=== PATIENT | male | born 1975 | race Caucasian/White ===

== ENCOUNTER 2020-02-03 00:36 | Inpatient (IN) | payer MEDICAID, OTHER ==
[~2020-02-03] VITALS: Ht 180.3 cm; Wt 99.1 kg
[2020-02-03 02:11] LABS: Basophils # (auto) 0.1 10 ^3/uL (0-0.2); Basophils % (auto) 0.7 % (0.0-2.0); Eosinophils # (auto) 0.1 10 ^3/uL (0-0.8); Eosinophils % (auto) 0.6 % (0.0-7.0); Hematocrit 49.4 % (41.0-53.0); Hemoglobin 16.2 g/dL (13.5-17.5); Lymphocytes # (auto) 3.4 10 ^3/uL (0.4-5.4); Lymphocytes % (auto) 33.7 % (10.0-50.0); Mean Corpuscular Hemoglobin 30.5 pg (28.0-32.0); Mean Corpuscular Hgb Conc. 32.8 g/dL (32.0-36.0); Mean Corpuscular Volume 93.1 fL (80.0-100.0); Monocytes # (auto) 0.5 10 ^3/uL (0-1.3); Monocytes % (auto) 5.4 % (0.0-12.0); Neutrophils % (auto) 59.6 % (37.0-80.0); Nucleated Red Blood Cells % 0.1 %; Platelet Count (auto) 341 10^3/uL (140-450); Red Blood Cells 5.31 10^6/uL (4.5-5.90); White Blood Cell 10.1 10^3/uL (4.4-10.8)
[2020-02-03 02:28] LABS: Albumin 2.7 g/dL (3.4-5.0); INR 0.96 (0.9-1.15); Partial Thromboplastin Time 26.6 sec (23.64-32.05); Potassium 5.1 mmol/L (3.5-5.1)
[2020-02-03] MEDS ORDERED: InsuLIN R (HUMAN) 100 UNITS in SODIUM CHL 0.9% 99 ML IV SCH (02:29)
[2020-02-03] MEDS ORDERED: DEXTROSE (50%) 50ML SYRG IV PRN ×2 (02:30→05:00)
[2020-02-03 02:32] LABS: BUN/Creatinine Ratio 14.8; Bilirubin, Total 0.2 mg/dL (0.2-1.0); Total Protein 6.9 g/dL (6.4-8.2)
[2020-02-03] MEDS ORDERED: InsuLIN REG 1unit/0.01ml Soln (100units/ml) ONE (02:53)
[2020-02-03] MEDS: ACCU-CHEK COMFORT CURVE STRIP VI SCH ×7 (03:35→23:55)
[2020-02-03] MEDS ORDERED: MORPHINE SULF INJ 2 MG/ML SYRINGE 1ML IV PRN ×2 (05:00→08:30)
[2020-02-03] MEDS ORDERED: NITROGLYCERIN 0.4 MG SL TAB SL PRN ×2 (05:00)
[2020-02-03] MEDS ORDERED: ONDANSETRON HCL 4 MG/2 ML VIAL IV PRN (05:00)
[2020-02-03] MEDS ORDERED: MORPHINE SULFATE 4 MG/ML SYR/VIAL IV PRN (05:00)
[2020-02-03] MEDS ORDERED: ACETAMINOPHEN 325 MG TAB PO PRN (05:00)
[2020-02-03] MEDS ORDERED: SODIUM CHLORIDE 0.9% 1,000 ML IV SCH (06:29)
[2020-02-03] MEDS: SODIUM CHLORIDE 0.9% 1,000 ML IV SCH ×2 (08:37→17:38)
[2020-02-03] MEDS: InsuLIN REG 1unit/0.01ml Soln (100units/ml) SC SCH ×5 (08:38→23:55)
[2020-02-03 09:00] VITALS: BP 128/90
[2020-02-03 09:09] LABS: BUN/Creatinine Ratio 20.2; Calcium 8.1 mg/dL (8.5-10.1); Potassium 3.9 mmol/L (3.5-5.1)
[2020-02-03] MEDS: DOCUSATE SOD 100 MG CAP PO SCH (10:00)
[2020-02-03] MEDS: ASPirin 81 mg TAB PO SCH (10:32)
[2020-02-03] MEDS: CARVEDILOL 3.125 MG TAB PO SCH ×2 (10:33→22:09)
[2020-02-03] MEDS: LISINOPRIL 20 MG TAB PO SCH (10:33)
[2020-02-03] MEDS: CLOPIDOGREL BISULFATE 75 MG TAB PO SCH (10:33)
[2020-02-03] MEDS ORDERED: HEPARIN DRIP/D5W 100UNITS/ML 250 ML IV SCH (10:43)
[2020-02-03] MEDS ORDERED: HEPARIN SODIUM (PORCINE) 5000 UNITS/ML 1ML VIAL IV ONE (10:45)
[2020-02-03 10:59] LABS: Alcohol, Urine < 3.0 mg/dL (0-5); Amphetamine Screen, Urine POSITIVE (NEGATIVE); Barbiturate Scree,Urine NEGATIVE (NEGATIVE); Benzodiazephine Screen, Urine NEGATIVE (NEGATIVE); Cannabinoid Screen, Urine NEGATIVE (NEGATIVE); Cocaine Screen, Urine NEGATIVE (NEGATIVE); Opiate Scree,Urine NEGATIVE (NEGATIVE); Phencyclidine Screen, Urine NEGATIVE (NEGATIVE)
[2020-02-03] MEDS ORDERED: NICOTINE 14 MG/24HR TOPICAL PATCH TD ONE (11:00)
[2020-02-03 11:18] LABS: INR 0.97 (0.9-1.15); Partial Thromboplastin Time 25.1 sec (23.64-32.05)
[2020-02-03 11:28] LABS: Cholesterol 244 mg/dL (< 200); HDL Cholesterol 31 mg/dL (40-59); Triglycerides 651 mg/dL (< 150)
[2020-02-03 13:00] VITALS: BP 138/95
[2020-02-03 14:55] LABS: Calcium 8.3 mg/dL (8.5-10.1)
[2020-02-03 14:59] LABS: BUN/Creatinine Ratio 19.4
[2020-02-03 17:00] VITALS: BP 120/81
[2020-02-03] MEDS: glipiZIDE 5 MG TAB PO SCH (17:38)
[2020-02-03] MEDS: Glucerna Carbsteady SHAKE Vanilla 8oz PO SCH (18:27)
[2020-02-03 20:21] LABS: BUN/Creatinine Ratio 22.9; Calcium 8.1 mg/dL (8.5-10.1); Potassium 3.7 mmol/L (3.5-5.1)
[2020-02-03 20:24] LABS: INR 1.01 (0.9-1.15); Partial Thromboplastin Time 41.7 sec (23.64-32.05)
[2020-02-03 22:00] VITALS: BP 116/84
[2020-02-03] MEDS: ATORVASTATIN 20 MG TAB PO SCH (22:09)
[2020-02-04 01:16] LABS: Anion Gap 5 (5-15); Blood Urea Nitrogen 22 mg/dL (7-18); Calcium 8.3 mg/dL (8.5-10.1); Carbon Dioxide 28 mmol/L (21-32); Chloride 104 mmol/L (98-107); Glucose 153 mg/dL (74-106); Magnesium 2.3 mg/dL (1.6-2.6); Potassium 3.9 mmol/L (3.5-5.1); Sodium 137 mmol/L (136-145)
[2020-02-04 01:22] LABS: BUN/Creatinine Ratio 26.8; Cholesterol 241 mg/dL (< 200); GFR African American 133 mL/min; GFR Non-African American 110 mL/min; HDL Cholesterol 33 mg/dL (40-59); Triglycerides 533 mg/dL (< 150)
[2020-02-04 03:19] LABS: INR 3.89 (0.9-1.15)
[2020-02-04 03:20] LABS: Partial Thromboplastin Time > 139.0 sec (23.64-32.05)
[2020-02-04] MEDS: ACCU-CHEK COMFORT CURVE STRIP VI SCH ×5 (03:55→20:13)
[2020-02-04] MEDS: InsuLIN REG 1unit/0.01ml Soln (100units/ml) SC SCH ×5 (03:56→20:13)
[2020-02-04] MEDS: SODIUM CHLORIDE 0.9% 1,000 ML IV SCH ×2 (05:34→20:58)
[2020-02-04] MEDS: glipiZIDE 5 MG TAB PO SCH ×2 (05:41→17:03)
[2020-02-04 06:00] VITALS: BP 119/87
[2020-02-04 06:49] LABS: Basophils # (auto) 0.1 10 ^3/uL (0-0.2); Basophils % (auto) 0.9 % (0.0-2.0); Eosinophils # (auto) 0.1 10 ^3/uL (0-0.8); Eosinophils % (auto) 1.1 % (0.0-7.0); Hematocrit 49.7 % (41.0-53.0); Hemoglobin 16.2 g/dL (13.5-17.5); Lymphocytes # (auto) 4.1 10 ^3/uL (0.4-5.4); Lymphocytes % (auto) 37.9 % (10.0-50.0); Mean Corpuscular Hgb Conc. 32.5 g/dL (32.0-36.0); Mean Corpuscular Volume 92.2 fL (80.0-100.0); Monocytes # (auto) 0.5 10 ^3/uL (0-1.3); Monocytes % (auto) 4.2 % (0.0-12.0); Neutrophils % (auto) 55.9 % (37.0-80.0); Platelet Count (auto) 307 10^3/uL (140-450); Red Blood Cells 5.39 10^6/uL (4.5-5.90); Red Cell Distribution Width 13.2 % (11.8-14.3); White Blood Cell 10.8 10^3/uL (4.4-10.8)
[2020-02-04 08:03] LABS: INR 0.98 (0.9-1.15); Partial Thromboplastin Time 39.3 sec (23.64-32.05)
[2020-02-04] MEDS: Glucerna Carbsteady SHAKE Vanilla 8oz PO SCH ×3 (08:26→18:04)
[2020-02-04 08:41] VITALS: BP 121/78
[2020-02-04] MEDS ORDERED: HEPARIN DRIP/D5W 100UNITS/ML 250 ML IV SCH ×2 (09:00→16:15)
[2020-02-04] MEDS: DOCUSATE SOD 100 MG CAP PO SCH (09:45)
[2020-02-04] MEDS: ASPirin 81 mg TAB PO SCH (09:47)
[2020-02-04] MEDS: CARVEDILOL 3.125 MG TAB PO SCH ×2 (09:48→22:33)
[2020-02-04] MEDS: CLOPIDOGREL BISULFATE 75 MG TAB PO SCH (09:48)
[2020-02-04] MEDS: LISINOPRIL 20 MG TAB PO SCH (09:48)
[2020-02-04] MEDS: NICOTINE 14 MG/24HR TOPICAL PATCH TD SCH (09:49)
[2020-02-04 13:00] VITALS: BP 121/75
[2020-02-04 15:14] LABS: INR 0.98 (0.9-1.15); Partial Thromboplastin Time 42.4 sec (23.64-32.05)
[2020-02-04 17:00] VITALS: BP 104/60
[2020-02-04 22:03] VITALS: BP 116/71
[2020-02-04] MEDS: ATORVASTATIN 20 MG TAB PO SCH (22:33)
[2020-02-04 22:47] LABS: INR 0.98 (0.9-1.15); Partial Thromboplastin Time 40.3 sec (23.64-32.05)
[2020-02-05] MEDS: ACCU-CHEK COMFORT CURVE STRIP VI SCH ×6 (00:17→20:36)
[2020-02-05] MEDS: InsuLIN REG 1unit/0.01ml Soln (100units/ml) SC SCH ×6 (04:00→20:39)
[2020-02-05 05:00] VITALS: BP 107/75
[2020-02-05] MEDS: glipiZIDE 5 MG TAB PO SCH ×2 (05:00→17:38)
[2020-02-05 05:59] LABS: Basophils # (auto) 0 10 ^3/uL (0-0.2); Basophils % (auto) 0.3 % (0.0-2.0); Eosinophils # (auto) 0.1 10 ^3/uL (0-0.8); Eosinophils % (auto) 1.2 % (0.0-7.0); Hematocrit 48.2 % (41.0-53.0); Hemoglobin 16.2 g/dL (13.5-17.5); Lymphocytes # (auto) 3.6 10 ^3/uL (0.4-5.4); Lymphocytes % (auto) 37.6 % (10.0-50.0); Mean Corpuscular Hemoglobin 31.1 pg (28.0-32.0); Mean Corpuscular Hgb Conc. 33.7 g/dL (32.0-36.0); Mean Corpuscular Volume 92.4 fL (80.0-100.0); Monocytes # (auto) 0.4 10 ^3/uL (0-1.3); Monocytes % (auto) 4.5 % (0.0-12.0); Neutrophils # (auto) 5.4 10 ^3/uL (1.6-8.6); Neutrophils % (auto) 56.4 % (37.0-80.0); Nucleated Red Blood Cells % 0.1 %; Platelet Count (auto) 286 10^3/uL (140-450); Red Blood Cells 5.21 10^6/uL (4.5-5.90); Red Cell Distribution Width 13.2 % (11.8-14.3); White Blood Cell 9.5 10^3/uL (4.4-10.8)
[2020-02-05 06:10] LABS: INR 1.01 (0.9-1.15); Partial Thromboplastin Time 53.2 sec (23.64-32.05)
[2020-02-05 06:29] LABS: Potassium 4.4 mmol/L (3.5-5.1)
[2020-02-05 06:35] LABS: BUN/Creatinine Ratio 30.9; Calcium 8.5 mg/dL (8.5-10.1)
[2020-02-05] MEDS: Glucerna Carbsteady SHAKE Vanilla 8oz PO SCH ×3 (08:00→17:38)
[2020-02-05] MEDS ORDERED: LIDOCAINE 2%HCL (LOCAL ANESTH.) INJ 20ML MDV ONE (08:32)
[2020-02-05] MEDS ORDERED: IODIXANOL 320MG/ML 100ML BTL IV ONE (08:32)
[2020-02-05] MEDS ORDERED: fentaNYL CITRATE 100 MCG/2 ML VL ONE (08:56)
[2020-02-05] MEDS ORDERED: VERAPAMIL 2.5MG/ML INJ 2ML VIAL IV ONE (08:56)
[2020-02-05] MEDS ORDERED: ANGIOMAX 250 MG VIAL IV ONE (08:56)
[2020-02-05] MEDS ORDERED: MIDAZOLAM HCL 1MG/1ML-2 ML VIAL ONE (08:57)
[2020-02-05] MEDS ORDERED: SODIUM CHL 0.9% 0 ML ONE (08:57)
[2020-02-05 09:07] VITALS: BP 106/52
[2020-02-05] MEDS ORDERED: HEPARIN SODIUM (PORCINE) 5000 UNITS/ML 1ML VIAL ONE (09:33)
[2020-02-05] MEDS: CARVEDILOL 3.125 MG TAB PO SCH ×2 (10:00→22:14)
[2020-02-05] MEDS: FENOFIBRATE PO SCH (10:00)
[2020-02-05] MEDS: DOCUSATE SOD 100 MG CAP PO SCH (10:00)
[2020-02-05] MEDS: NICOTINE 14 MG/24HR TOPICAL PATCH TD SCH (10:00)
[2020-02-05] MEDS: LISINOPRIL 20 MG TAB PO SCH (10:00)
[2020-02-05] MEDS ORDERED: IOHEXOL 350 MG/ML 100ML IJ ONE ×2 (10:06→10:28)
[2020-02-05] MEDS ORDERED: ATROPINE SULF 1 MG/10ml SYR ONE (10:11)
[2020-02-05] MEDS ORDERED: DOPamine 1600MCG/ML D5W 250 ML IV ONE (10:12)
[2020-02-05] MEDS ORDERED: EPINEPHrine HCL 1 MG/10 ML SYRG ONE (10:16)
[2020-02-05] MEDS: SODIUM CHLORIDE 0.9% 1,000 ML IV SCH (10:18)
[2020-02-05] MEDS ORDERED: PHENYLEPHRINE HCL 10 MG/ML VL ONE (10:20)
[2020-02-05] MEDS: ASPirin 81 mg TAB PO SCH (11:12)
[2020-02-05] MEDS: CLOPIDOGREL BISULFATE 75 MG TAB PO SCH (11:13)
[2020-02-05 13:00] VITALS: BP 103/65
[2020-02-05] MEDS ORDERED: HYDROcodone-ACET 5/325MG TAB PO PRN (15:30)
[2020-02-05 16:39] VITALS: BP 132/89
[2020-02-05 22:00] VITALS: BP 143/98
[2020-02-05] MEDS: ATORVASTATIN 20 MG TAB PO SCH (22:14)
[2020-02-06] MEDS: ACCU-CHEK COMFORT CURVE STRIP VI SCH ×4 (00:01→12:23)
[2020-02-06] MEDS: SODIUM CHLORIDE 0.9% 1,000 ML IV SCH ×2 (00:01→12:41)
[2020-02-06] MEDS: InsuLIN REG 1unit/0.01ml Soln (100units/ml) SC SCH ×4 (00:06→12:00)
[2020-02-06 05:00] VITALS: BP 118/76
[2020-02-06 06:40] LABS: Basophils # (auto) 0 10 ^3/uL (0-0.2); Basophils % (auto) 0.5 % (0.0-2.0); Eosinophils # (auto) 0.1 10 ^3/uL (0-0.8); Eosinophils % (auto) 0.5 % (0.0-7.0); Hematocrit 47.1 % (41.0-53.0); Hemoglobin 15.8 g/dL (13.5-17.5); Lymphocytes # (auto) 3.1 10 ^3/uL (0.4-5.4); Lymphocytes % (auto) 30.7 % (10.0-50.0); Mean Corpuscular Hemoglobin 30.8 pg (28.0-32.0); Mean Corpuscular Hgb Conc. 33.6 g/dL (32.0-36.0); Mean Corpuscular Volume 91.7 fL (80.0-100.0); Monocytes # (auto) 0.7 10 ^3/uL (0-1.3); Monocytes % (auto) 6.6 % (0.0-12.0); Neutrophils # (auto) 6.2 10 ^3/uL (1.6-8.6); Neutrophils % (auto) 61.7 % (37.0-80.0); Platelet Count (auto) 296 10^3/uL (140-450); Red Blood Cells 5.14 10^6/uL (4.5-5.90); Red Cell Distribution Width 13.2 % (11.8-14.3); White Blood Cell 10.1 10^3/uL (4.4-10.8)
[2020-02-06] MEDS: glipiZIDE 5 MG TAB PO SCH (06:52)
[2020-02-06 07:17] LABS: BUN/Creatinine Ratio 23.9; Calcium 8.4 mg/dL (8.5-10.1); Potassium 4.1 mmol/L (3.5-5.1)
[2020-02-06] MEDS: Glucerna Carbsteady SHAKE Vanilla 8oz PO SCH ×2 (08:27→12:00)
[2020-02-06 09:00] VITALS: BP 129/88
[2020-02-06] MEDS: FENOFIBRATE PO SCH (10:00)
[2020-02-06] MEDS: DOCUSATE SOD 100 MG CAP PO SCH (10:35)
[2020-02-06] MEDS: LISINOPRIL 20 MG TAB PO SCH (10:35)
[2020-02-06] MEDS: ASPirin 81 mg TAB PO SCH (10:35)
[2020-02-06] MEDS: CLOPIDOGREL BISULFATE 75 MG TAB PO SCH (10:36)
[2020-02-06] MEDS: CARVEDILOL 3.125 MG TAB PO SCH (10:37)
[2020-02-06] MEDS: NICOTINE 14 MG/24HR TOPICAL PATCH TD SCH (10:39)
[2020-02-06 13:00] VITALS: BP 125/78
[2020-02-06 14:28] VITALS: BP 125/78
== END 2020-02-06 14:50 | disposition home or self-care (01) | DRG 174 ==
LOC: EDBD 00:36 → ER 00:41 → TELE 00:42 → TELE-WESTW 07:53
PROVIDERS: ADMIT Hospitalist; ATTEND Internal Medicine
PROC: 027034Z Dilation of Coronary Artery, One Artery with Drug-eluting Intraluminal Device, Percutaneous Approach (ICD-10-PCS; principal; 2020-02-05)
PROC: 4A023N7 Measurement of Cardiac Sampling and Pressure, Left Heart, Percutaneous Approach (ICD-10-PCS; 2020-02-05)
PROC: B2111ZZ Fluoroscopy of Multiple Coronary Arteries using Low Osmolar Contrast (ICD-10-PCS; 2020-02-05)
PROC: B2151ZZ Fluoroscopy of Left Heart using Low Osmolar Contrast (ICD-10-PCS; 2020-02-05)
DX: I21.4 Non-ST elevation (NSTEMI) myocardial infarction (principal); D89.9 Disorder involving the immune mechanism, unspecified; E11.21 Type 2 diabetes mellitus with diabetic nephropathy; E11.65 Type 2 diabetes mellitus with hyperglycemia; E87.1 Hypo-osmolality and hyponatremia; E66.3 Overweight; E78.5 Hyperlipidemia, unspecified; F15.90 Other stimulant use, unspecified, uncomplicated; F17.210 Nicotine dependence, cigarettes, uncomplicated; I10 Essential (primary) hypertension; E78.00 Pure hypercholesterolemia, unspecified; R00.0 Tachycardia, unspecified; Z82.49 Family history of ischemic heart disease and other diseases of the circulatory system; Z83.3 Family history of diabetes mellitus; Z83.42 Family history of familial hypercholesterolemia; Z79.02 Long term (current) use of antithrombotics/antiplatelets; Z79.82 Long term (current) use of aspirin; Z79.84 Long term (current) use of oral hypoglycemic drugs; Z79.899 Other long term (current) drug therapy; I25.10 Atherosclerotic heart disease of native coronary artery without angina pectoris; Z68.30 Body mass index [BMI] 30.0-30.9, adult
CPT/HCPCS: 36415; 36600; 71045; 80048; 80053; 80061; 80307; 82010; 82805; 82962; 83036; 83735; 83880; 83930; 84100; 84443; 84484; 85025; 85610; 85730; 93005; 93306; 96361; 99152; 99153; C1874; C1887; G0378; J1815; J2250; Q9967

== ENCOUNTER 2021-04-21 15:46 | Inpatient (IN) | payer MEDICAID ==
[~2021-04-21] VITALS: Ht 180.3 cm; Wt 99.1 kg
[2021-04-21] MEDS ORDERED: HEPARIN 1,000 UNITS/ml 1ML VIAL ONE (15:57)
[2021-04-21] MEDS ORDERED: HEPARIN SODIUM (PORCINE) 5000 UNITS/ML 1ML VIAL IV ONE ×2 (16:00)
[2021-04-21] MEDS ORDERED: fentaNYL CITRATE 100 MCG/2 ML VL ONE (16:01)
[2021-04-21] MEDS ORDERED: SODIUM CHL 0.9% 50 ML ONE (16:01)
[2021-04-21] MEDS ORDERED: VERAPAMIL 2.5MG/ML INJ 2ML VIAL IV ONE (16:01)
[2021-04-21] MEDS ORDERED: HEPARIN SODIUM (PORCINE) 5000 UNITS/ML 1ML VIAL ONE (16:01)
[2021-04-21] MEDS ORDERED: ANGIOMAX 250 MG VIAL IV ONE (16:01)
[2021-04-21] MEDS ORDERED: MIDAZOLAM HCL 1MG/1ML-2 ML VIAL ONE (16:01)
[2021-04-21] MEDS ORDERED: IOHEXOL 350 MG/ML 100ML IJ ONE (16:02)
[2021-04-21] MEDS ORDERED: LIDOCAINE 2%HCL (LOCAL ANESTH.) INJ 20ML MDV ONE (16:02)
[2021-04-21 16:14] LABS: Basophils # (auto) 0.1 10 ^3/uL (0-0.2); Basophils % (auto) 0.5 % (0.0-2.0); Eosinophils # (auto) 0 10 ^3/uL (0-0.8); Eosinophils % (auto) 0.4 % (0.0-7.0); Hematocrit 43.3 % (41.0-53.0); Hemoglobin 14.6 g/dL (13.5-17.5); Lymphocytes # (auto) 3.9 10 ^3/uL (0.4-5.4); Mean Corpuscular Hgb Conc. 33.7 g/dL (32.0-36.0); Mean Corpuscular Volume 91.9 fL (80.0-100.0); Monocytes # (auto) 0.8 10 ^3/uL (0-1.3); Neutrophils # (auto) 6.1 10 ^3/uL (1.6-8.6); Neutrophils % (auto) 56.1 % (37.0-80.0); Nucleated Red Blood Cells % 0.1 %; Red Blood Cells 4.72 10^6/uL (4.5-5.90); Red Cell Distribution Width 13.2 % (11.8-14.3); White Blood Cell 10.9 10^3/uL (4.4-10.8)
[2021-04-21] MEDS ORDERED: IODIXANOL 320MG/ML 100ML BTL IV ONE (16:17)
[2021-04-21] MEDS ORDERED: ATROPINE SULF 1 MG/10ml SYR ONE (16:20)
[2021-04-21] MEDS ORDERED: EPINEPHrine HCL 1 MG/10 ML SYRG ONE (16:21)
[2021-04-21] MEDS ORDERED: EPTIFIBATIDE INJ (2MG/ML) 10ML VIAL IV ONE (16:26)
[2021-04-21] MEDS ORDERED: ASPirin 81 mg TAB ONE (16:29)
[2021-04-21 16:35] LABS: INR 0.9 (0.9-1.15); Partial Thromboplastin Time 24.4 sec (23.0-31.2)
[2021-04-21] MEDS ORDERED: SODIUM CHLORIDE 0.9% 1,000 ML IV ONE (16:40)
[2021-04-21 16:50] LABS: Albumin 2.9 g/dL (3.4-5.0); BUN/Creatinine Ratio 17.7; Calcium 8.6 mg/dL (8.5-10.1); Potassium 4.3 mmol/L (3.5-5.1)
[2021-04-21 16:55] LABS: Bilirubin, Total 0.4 mg/dL (0.2-1.0); Total Protein 6.7 g/dL (6.4-8.2)
[2021-04-21] MEDS ORDERED: NITROGLYCERIN 0.4 MG SL TAB SL PRN (17:00)
[2021-04-21] MEDS ORDERED: MORPHINE SULF INJ 2 MG/ML SYRINGE 1ML IV PRN (17:00)
[2021-04-21] MEDS ORDERED: TICAGRELOR 90 MG TAB PO ONE (17:00)
[2021-04-21 22:00] VITALS: BP 129/92
[2021-04-21] MEDS: CARVEDILOL 3.125 MG TAB PO SCH (22:13)
[2021-04-22 05:00] VITALS: BP 138/87
[2021-04-22] MEDS: CARVEDILOL 3.125 MG TAB PO SCH ×2 (08:42→21:11)
[2021-04-22] MEDS: ASPirin 81 mg TAB PO SCH (08:42)
[2021-04-22] MEDS: ATORVASTATIN 20 MG TAB PO SCH (08:49)
[2021-04-22 09:00] VITALS: BP 129/82
[2021-04-22] MEDS ORDERED: TICAGRELOR 90 MG TAB PO SCH (10:00)
[2021-04-22] MEDS ORDERED: DEXTROSE (50%) 50ML SYRG IV PRN (10:00)
[2021-04-22 11:27] LABS: Cholesterol 225 mg/dL (< 200)
[2021-04-22 11:29] LABS: HDL Cholesterol 35 mg/dL (40-59); Triglycerides 608 mg/dL (< 150)
[2021-04-22] MEDS: ACCU-CHEK COMFORT CURVE STRIP VI SCH ×3 (11:44→21:07)
[2021-04-22] MEDS: InsuLIN REG 1unit/0.01ml Soln (100units/ml) SC SCH ×2 (11:48→17:21)
[2021-04-22 13:00] VITALS: BP 125/92
[2021-04-22 16:37] VITALS: BP 109/86
[2021-04-22] MEDS ORDERED: CLOPIDOGREL 300 MG TAB PO ONE (18:30)
[2021-04-22 22:00] VITALS: BP 120/80
[2021-04-22] MEDS ORDERED: InsuLIN REG 1unit/0.01ml Soln (100units/ml) SC SCH (22:00)
[2021-04-23 05:11] VITALS: BP 107/76
[2021-04-23] MEDS: ACCU-CHEK COMFORT CURVE STRIP VI SCH ×3 (06:12→17:00)
[2021-04-23] MEDS: InsuLIN REG 1unit/0.01ml Soln (100units/ml) SC SCH ×3 (06:12→17:02)
[2021-04-23 06:41] LABS: Albumin 2.8 g/dL (3.4-5.0); Calcium 8.5 mg/dL (8.5-10.1)
[2021-04-23 06:45] LABS: Bilirubin, Direct 0.2 mg/dL (0-0.2); Bilirubin, Total 0.5 mg/dL (0.2-1.0); Total Protein 7.5 g/dL (6.4-8.2)
[2021-04-23 09:00] VITALS: BP 103/76
[2021-04-23] MEDS: ASPirin 81 mg TAB PO SCH (09:25)
[2021-04-23] MEDS: CARVEDILOL 3.125 MG TAB PO SCH (09:26)
[2021-04-23] MEDS: ATORVASTATIN 20 MG TAB PO SCH (09:26)
[2021-04-23] MEDS ORDERED: CLOPIDOGREL BISULFATE 75 MG TAB PO SCH (10:00)
[2021-04-23] MEDS ORDERED: CLOP75TA28 PO (11:38)
[2021-04-23] MEDS ORDERED: ASPI-543 PO (11:38)
[2021-04-23] MEDS ORDERED: CAR3125T PO (11:39)
[2021-04-23] MEDS ORDERED: ATOR80TA PO (11:39)
[2021-04-23] MEDS ORDERED: INSLANTI SC (11:40)
[2021-04-23] MEDS ORDERED: INSREG3 SUBCUT (11:42)
[2021-04-23 13:00] VITALS: BP 109/76
== END 2021-04-23 18:13 | disposition home or self-care (01) | DRG 174 ==
LOC: ER 15:46 → EDBD 15:46 → ER 16:04 → TELE-CENTR 16:48
PROVIDERS: ADMIT Nurse Practitioner Acute Care; ATTEND Internal Medicine
PROC: B211YZZ Fluoroscopy of Multiple Coronary Arteries using Other Contrast (ICD-10-PCS; principal; 2021-04-21)
PROC: 027034Z Dilation of Coronary Artery, One Artery with Drug-eluting Intraluminal Device, Percutaneous Approach (ICD-10-PCS; 2021-04-21)
PROC: 4A023N7 Measurement of Cardiac Sampling and Pressure, Left Heart, Percutaneous Approach (ICD-10-PCS; 2021-04-21)
DX: I21.3 ST elevation (STEMI) myocardial infarction of unspecified site (principal); I11.0 Hypertensive heart disease with heart failure; E11.65 Type 2 diabetes mellitus with hyperglycemia; I50.9 Heart failure, unspecified; E87.1 Hypo-osmolality and hyponatremia; I25.10 Atherosclerotic heart disease of native coronary artery without angina pectoris; Z20.822 Contact with and (suspected) exposure to COVID-19; E78.5 Hyperlipidemia, unspecified; Z79.02 Long term (current) use of antithrombotics/antiplatelets; Z72.0 Tobacco use; Z79.4 Long term (current) use of insulin; Z79.82 Long term (current) use of aspirin; Z79.899 Other long term (current) drug therapy; Z82.49 Family history of ischemic heart disease and other diseases of the circulatory system; Z83.3 Family history of diabetes mellitus; Z91.19 Patient's noncompliance with other medical treatment and regimen; Z95.5 Presence of coronary angioplasty implant and graft
CPT/HCPCS: 36415; 71045; 80048; 80053; 80061; 80076; 82962; 83036; 84484; 85025; 85610; 85730; 87426; 92928; 93458; 96361; 96374; 99152; C1874; G0378; J1815; J2250; Q9967

== ENCOUNTER 2023-02-28 07:19 | Emergency (ER) | payer MEDICAID ==
[~2023-02-28] VITALS: Ht 182.9 cm; Wt 127.0 kg
[~2023-02-28 07:19] MED LIST: ASPI-543 PO; ATOR80TA PO; CAR3125T PO; CLOP75TA28 PO; INSLANTI SC; INSREG3 SUBCUT
[2023-02-28] MEDS ORDERED: LORazepam 2MG/ML-1ML VIAL IV ONE (08:00)
[2023-02-28 08:10] LABS: Basophils # (auto) 0.1 10 ^3/uL (0-0.2); Basophils % (auto) 1.2 % (0.0-2.0); Eosinophils # (auto) 0.1 10 ^3/uL (0-0.8); Eosinophils % (auto) 1.2 % (0.0-7.0); Hematocrit 38.7 % (41.0-53.0); Hemoglobin 12.9 g/dL (13.5-17.5); Lymphocytes # (auto) 2.9 10 ^3/uL (0.4-5.4); Mean Corpuscular Hemoglobin 30.8 pg (28.0-32.0); Mean Corpuscular Hgb Conc. 33.3 g/dL (32.0-36.0); Mean Corpuscular Volume 92.7 fL (80.0-100.0); Monocytes # (auto) 0.7 10 ^3/uL (0-1.3); Monocytes % (auto) 6.9 % (0.0-12.0); Neutrophils # (auto) 6.7 10 ^3/uL (1.6-8.6); Neutrophils % (auto) 63.7 % (37.0-80.0); Red Blood Cells 4.17 10^6/uL (4.5-5.90); Red Cell Distribution Width 13.5 % (11.8-14.3); White Blood Cell 10.6 10^3/uL (4.4-10.8)
[2023-02-28 08:21] LABS: Albumin 3.3 g/dL (3.4-5.0); Anion Gap 6 (5-15); Blood Alcohol < 3.0 mg/dL (0-5); Blood Urea Nitrogen 18 mg/dL (7-18); Calcium 7.9 mg/dL (8.5-10.1); Carbon Dioxide 24 mmol/L (21-32); Chloride 112 mmol/L (98-107); Glucose 208 mg/dL (74-106); Magnesium 1.8 mg/dL (1.6-2.6); Potassium 3.5 mmol/L (3.5-5.1); Sodium 142 mmol/L (136-145)
[2023-02-28 08:22] LABS: INR 1.02 (0.9-1.15); Partial Thromboplastin Time 26.6 sec (24.6-33.4)
[2023-02-28 08:24] LABS: Alanine Aminotransferase 29 U/L (16-61); Alkaline Phosphatase 89 U/L (45-117); Aspartate Aminotransferase 16 U/L (15-37); BUN/Creatinine Ratio 18.2 (10.0-20.0); Bilirubin, Total 0.6 mg/dL (0.2-1.0); GFR African American 105 mL/min; GFR Non-African American 87 mL/min; Total Protein 6.5 g/dL (6.4-8.2)
[2023-02-28] MEDS ORDERED: IOHEXOL 350 MG/ML 100ML IJ ONE (08:52)
[2023-02-28 09:52] LABS: Urine Bacteria NONE SEEN /hpf (None Seen); Urine Blood Negative /uL (Negative); Urine Specific Gravity 1.036 (1.001-1.035); Urine WBC 1 /hpf (0 - 3)
[2023-02-28] MEDS ORDERED: ALTEPLASE (RECOMBINANT) 100 MG ONE (09:54)
[2023-02-28] MEDS ORDERED: ALTEPLASE (RECOMBINANT) 100 MG in STERILE WATER 100 ML IV ONE (10:00)
[2023-02-28 10:04] LABS: Alcohol, Urine < 3.0 mg/dL (0-10); Amphetamine Screen, Urine POSITIVE (NEGATIVE); Cannabinoid Screen, Urine NEGATIVE (NEGATIVE)
[2023-02-28 10:12] LABS: Barbiturate Scree,Urine NEGATIVE (NEGATIVE); Benzodiazephine Screen, Urine NEGATIVE (NEGATIVE); Cocaine Screen, Urine NEGATIVE (NEGATIVE); Opiate Scree,Urine NEGATIVE (NEGATIVE); Phencyclidine Screen, Urine NEGATIVE (NEGATIVE)
[2023-02-28 11:12] VITALS: BP 130/81
== END 2023-02-28 11:28 | disposition short-term general hospital (02) ==
LOC: EDBD 07:19 → ER 07:19
DX: R41.82 Altered mental status, unspecified (principal); I63.9 Cerebral infarction, unspecified; I65.22 Occlusion and stenosis of left carotid artery; F15.10 Other stimulant abuse, uncomplicated; I11.0 Hypertensive heart disease with heart failure; I50.9 Heart failure, unspecified; E78.5 Hyperlipidemia, unspecified
CPT/HCPCS: 36415; 70450; 70496; 80053; 80307; 80320; 81001; 82962; 83735; 85025; 85610; 85730; 93005; 96365; 96375; 99285; J2060; J2997; Q9967